=== PATIENT | female | born 1950 | race Caucasian/White ===

== ENCOUNTER 2018-11-25 05:55 | Emergency (ER) | payer OTHER, MEDICARE ==
--- NOTE | 2018-11-25 06:16 | EDM.PDOC ---
ED HPI GENERAL MEDICAL PROBLEM - General Chief Complaint: Cardiovascular Problem Stated Complaint: HIGH BLOOD PRESSURE Time Seen by Provider: 11/25/18 06:16 - History of Present Illness INITIAL COMMENTS - FREE TEXT/NARRATIVE: 68-year-old female presents emergency room with elevated blood pressure. The patient noticed her blood pressure in the 160s 170s around 4:30 at 5:00 it was his highest at 181. This was not associated with any chest pain chest pressure breathing difficulty or shortness of breath. No significant headaches or areas of numbness or weakness were appreciated. The patient was checking her blood pressure because she's noticed that her blood pressures been going up lately but often times during the day her pressure is much lower systolics in the 110s to 120s she has no history of urinary artery disease. She does not currently smoke she quit many years ago probably 45 or so years ago. - Related Data Allergies Allergy/AdvReac Type Severity Reaction Status Date / Time azithromycin [From Zithromax] Allergy Diarrhea Verified 11/25/18 06:13 Penicillins Allergy Hives Verified 11/25/18 06:13 Sulfa (Sulfonamide Allergy Diarrhea Verified 11/25/18 06:13 Antibiotics) ED ROS GENERAL - Review of Systems Review Of Systems: See Below Constitutional: Reports: No Symptoms HEENT: Reports: No Symptoms Respiratory: Reports: No Symptoms Cardiovascular: Reports: No Symptoms GI/Abdominal: Reports: No Symptoms Neurological: Reports: No Symptoms ED EXAM, GENERAL - Physical Exam Exam: See Below Exam Limited By: No Limitations General Appearance: Alert, No Apparent Distress Head: Atraumatic, Normocephalic Neck: Normal Inspection, Supple, Non-Tender, Full Range of Motion Respiratory/Chest: No Respiratory Distress, Lungs Clear, Normal Breath Sounds Cardiovascular: Regular Rate, Rhythm, No Murmur, Other (She has large legs is chronic deal most likely due to body habitus. Perhaps minimal edema.) GI/Abdominal: Other (She is quite obese) Neurological: Alert, Oriented, Normal Cognition EKG INTERPRETATION EKG Date: 11/25/18 Rhythm: NSR Rate (Beats/Min): 81 [place]: Other (Borderline leftward) P-Wave: Present QRS: Other (Borderline interventricular conduction delay) ST-T: Other (Minimal nonspecific nondiagnostic changes) QT: Normal Comparison: NA - No Prior EKG EKG Interpretation Comments: Abnormal Course - Vital Signs Last Recorded V/S: Last Vital Signs Temp 36.3 C 11/25/18 06:05 Pulse 77 11/25/18 06:05 Resp 18 11/25/18 06:05 BP 148/79 H 11/25/18 06:05 Pulse Ox 100 11/25/18 06:05 - Orders/Labs/Meds Orders: Active Orders 24 hr Category Date Time Status EKG Documentation Completion [RC] ASDIRECTED Care 11/25/18 06:33 Active EKG 12 Lead [EK] Stat Ther 11/25/18 06:32 Ordered Labs: Laboratory Tests 11/25/18 Range/Units 06:40 Sodium 141 (136-145) mEq/L Potassium 3.9 (3.5-5.1) mEq/L Chloride 107 (98-107) mEq/L Carbon Dioxide 25 (21-32) mEq/L Anion Gap 12.9 (5-15) BUN 13 (7-18) mg/dL Creatinine 0.8 (0.55-1.02) mg/dL Est Cr Clr Drug Dosing 64.76 mL/min Estimated GFR (MDRD) > 60 (>60) mL/min BUN/Creatinine Ratio 16.3 (14-18) Glucose 96 (80-115) mg/dL Calcium 9.1 (8.5-10.1) mg/dL - Re-Assessments/Exams Free Text/Narrative Re-Assessment/Exam: 11/25/18 07:19 Basic metabolic panel is normal. Strongly encouraged patient to follow-up in the clinic Departure - Departure Time of Disposition: 07:21 Disposition: Home, Self-Care 01 Clinical Impression: Hypertension Referrals: PCP,None [Primary Care Provider] - Forms: ED Department Discharge Additional Instructions: Return to the emergency room with any questions or problems. Follow-up at the Hospital clinic with one of the physicians for recheck your blood pressure and to establish. [phone] - My Orders Last 24 Hours: My Active Orders 11/25/18 06:32 EKG 12 Lead [EK] Stat 11/25/18 06:33 EKG Documentation Completion [RC] ASDIRECTED - Assessment/Plan Last 24 Hours: My Active Orders 11/25/18 06:32 EKG 12 Lead [EK] Stat 11/25/18 06:33 EKG Documentation Completion [RC] ASDIRECTED
== END 2018-11-25 07:35 | disposition home or self-care (01) ==
LOC: JD.ED 05:55
DX: I10 Essential (primary) hypertension (principal); Z88.1 Allergy status to other antibiotic agents; Z88.0 Allergy status to penicillin; Z88.2 Allergy status to sulfonamides
CPT/HCPCS: 36415; 80048; 93005; 99283-25

== ENCOUNTER 2018-12-04 01:59 | Emergency (ER) | payer OTHER, MEDICARE ==
[2018-12-04] MEDS ORDERED: Ondansetron 4 MG/2 ML SDV IVPUSH ONE (02:56)
[2018-12-04] MEDS ORDERED: Sodium Chloride 0.9% 1,000 ML IV ONE (02:56)
--- NOTE | 2018-12-04 02:58 | EDM.PDOC ---
ED HPI GENERAL MEDICAL PROBLEM - General Chief Complaint: Cardiovascular Problem Stated Complaint: VOMITING/A-FIB Time Seen by Provider: 12/04/18 02:37 Source of Information: Reports: Patient, Family () History Limitations: Reports: No Limitations - History of Present Illness INITIAL COMMENTS - FREE TEXT/NARRATIVE: Mrs. Reynoso is a very pleasant 68-year-old woman with a past medical history significant for paroxysmal atrial fibrillation "whenever I get sick" since 2011 , and hypothyroidism following I-131 ablation for hyperthyroidism, who states that she woke around 23:15 with nausea and vomiting. She had repeated episodes, then, around 00:30, she felt herself go into atrial fibrillation. She is able to tell when she is in atrial fibrillation because of rapid palpitations. The patient does not recall eating any bad taste or spoiled food over the past few days. No similarly ill close contacts. No recent antibiotics. No recent travel. The patient did not take any [id number] or home remedies prior to coming to the ED. The patient states she has a remote history of SVT, status post cardiac ablation. The patient's PCP is YAMILE Hayes. Abdominal Pain Score (Numeric/FACES): 5 - Related Data Allergies Allergy/AdvReac Type Severity Reaction Status Date / Time azithromycin [From Zithromax] Allergy Diarrhea Verified 12/04/18 02:16 Penicillins Allergy Hives Verified 12/04/18 02:16 Sulfa (Sulfonamide Allergy Diarrhea Verified 12/04/18 02:16 Antibiotics) Home Meds: Home Meds Ondansetron [Zofran ODT] 1 tab PO Q8H PRN #10 tab.dis 12/04/18 [Rx] Past Medical History Cardiovascular History: Reports: Afib (paroxysmal), Arrhythmia (SVT, s/p cardiac ablation) Gastrointestinal History: Reports: GERD, Hiatal Hernia Genitourinary History: Reports: Urinary Incontinence (stress incontinence) Musculoskeletal History: Reports: Arthritis Endocrine/Metabolic History: Reports: Hypothyroidism (following I-131 ablation for hyperthyroidism), Obesity/BMI 30+ - Past Surgical History HEENT Surgical History: Reports: Tonsillectomy Cardiovascular Surgical History: Reports: Cardiac Ablation (for SVT) GI Surgical History: Reports: Bariatric Procedure (gastric bypass 2006) Female Surgical History: Reports: Hysterectomy (complete), Tubal Ligation Social & Family History - Tobacco Use Smoking Status *Q: Former Smoker Years of Tobacco use: 8 Packs/Tins Daily: 1 Month/Year Tobacco Last Used: Quit 1975 - Caffeine Use Caffeine Use: Reports: Coffee - Alcohol Use Alcohol Use History: Yes Alcohol Use Frequency: Socially - Recreational Drug Use Recreational Drug Use: No - Living Situation & Occupation Living situation: Reports: , with Spouse Occupation: Employed ([employer]) ED ROS GENERAL - Review of Systems Review Of Systems: ROS reveals no pertinent complaints other than HPI. Neurological: Reports: Headache ED EXAM, GENERAL - Physical Exam Exam: See Below Exam Limited By: No Limitations General Appearance: Alert, WD/WN, No Apparent Distress Eye Exam: Bilateral Eye: EOMI, Normal Inspection Ears: Normal External Exam, Hearing Grossly Normal Nose: Normal Inspection Throat/Mouth: Normal Inspection, Normal Lips, Normal Voice, No Airway Compromise Head: Atraumatic, Normocephalic Neck: Normal Inspection, Full Range of Motion Respiratory/Chest: No Respiratory Distress, Lungs Clear, Normal Breath Sounds, No Accessory Muscle Use Cardiovascular: Normal Peripheral Pulses, No Gallop, No JVD, No Murmur, No Rub, Tachycardia, Irregularly Irregular Peripheral Pulses: 4+: Radial (L), Radial (R) GI/Abdominal: Normal Bowel Sounds, Soft, Non-Tender, No Organomegaly, No Distention, No Abnormal Bruit, No Mass (Female) Exam: Deferred Rectal (Female) Exam: Deferred Back Exam: Normal Inspection, Full Range of Motion, NT Extremities: Normal Inspection, Normal Range of Motion, Normal Capillary Refill Neurological: Alert, Oriented, Normal Cognition, No Motor/Sensory Deficits Psychiatric: Normal Affect Skin Exam: Warm, Dry, Intact, Normal Color, No Rash EKG INTERPRETATION EKG Date: 12/04/18 Time: 02:20 Rhythm: A-Fib Rate (Beats/Min): 137 [place]: Normal P-Wave: Absent QRS: LBBB (incomplete) ST-T: Normal QT: Normal Comparison: No Change (11/25/2018) Course - Vital Signs Last Recorded V/S: Last Vital Signs Temp 36.2 C 12/04/18 02:10 Pulse 109 H 12/04/18 04:46 Resp 16 12/04/18 04:46 BP 125/82 12/04/18 04:46 Pulse Ox 98 12/04/18 04:46 - Orders/Labs/Meds Orders: Active Orders 24 hr Category Date Time Status EKG 12 Lead [EKG Documentation Completion] [RC] STAT Care 12/04/18 04:54 Active EKG Documentation Completion [RC] ROUTINE Care 12/04/18 02:04 Active Chest 2V [CR] Stat Exams 12/04/18 02:55 Taken Labs: Laboratory Tests 12/04/18 12/04/18 12/04/18 Range/Units 03:10 03:10 03:10 WBC 13.87 H (3.98-10.04) K/mm3 RBC 4.69 (3.98-5.22) M/mm3 Hgb 14.8 (11.2-15.7) gm/L Hct 44.1 (34.1-44.9) % MCV 94.0 (79.4-94.8) fl MCH 31.6 (25.6-32.2) pg MCHC 33.6 (32.2-35.5) g/dl RDW Std Deviation 47.8 H (36.4-46.3) fL Plt Count 234 (182-369) K/mm3 MPV 10.2 (9.4-12.3) fl Neutrophils % (Manual) 69 H (40-60) % Band Neutrophils % 23 H (0-10) % Lymphocytes % (Manual) 5 L (20-40) % Atypical Lymphs % 0 % Monocytes % (Manual) 2 (2-10) % Eosinophils % (Manual) 1 (0.7-5.8) % Basophils % (Manual) 0 L (0.1-1.2) Toxic Granulation 1+ slight Platelet Estimate Adequate Plt Morphology Comment Normal RBC Morph Comment Normal D-Dimer, Quantitative 2.56 H (0.19-0.50) mg/L Sodium 140 (136-145) mEq/L Potassium 4.8 (3.5-5.1) mEq/L Chloride 106 (98-107) mEq/L Carbon Dioxide 24 (21-32) mEq/L Anion Gap 14.8 (5-15) BUN 23 H (7-18) mg/dL Creatinine 1.1 H (0.55-1.02) mg/dL Est Cr Clr Drug Dosing 43.44 mL/min Estimated GFR (MDRD) 50 (>60) mL/min BUN/Creatinine Ratio 20.9 H (14-18) Glucose 114 (80-115) mg/dL Calcium 9.3 (8.5-10.1) mg/dL Magnesium 1.9 (1.8-2.4) mg/dl Total Bilirubin 0.5 (0.2-1.0) mg/dL AST 25 (15-37) U/L ALT 24 (14-59) U/L Alkaline Phosphatase 89 (46-116) U/L Troponin I < 0.017 (0.00-0.056) ng/mL Total Protein 7.2 (6.4-8.2) g/dl Albumin 3.5 (3.4-5.0) g/dl Globulin 3.7 gm/dL Albumin/Globulin Ratio 1.0 (1-2) TSH 3rd Generation 7.496 H (0.358-3.74) uIU/mL Meds: Medications Discontinued Medications Generic Name Dose Route Start Last Admin Trade Name Freq PRN Reason Stop Dose Admin Sodium Chloride 1,000 mls @ 999 mls/hr 12/04/18 02:56 12/04/18 03:04 Normal Saline IV 12/04/18 03:56 999 mls/hr ONETIME ONE Administration Sodium Chloride 1,000 mls @ 150 mls/hr 12/04/18 04:45 Normal Saline IV ASDIRECTED [place] Sodium Chloride 100 mls @ 4 mls/sec 12/04/18 04:59 Normal Saline IV 12/04/18 05:00 ONETIME ONE Iopamidol 100 ml 12/04/18 04:59 Isovue-370 (76%) IVPUSH 12/04/18 05:00 ONETIME ONE Ondansetron HCl 4 mg 12/04/18 02:56 12/04/18 03:04 Zofran IVPUSH 12/04/18 02:57 4 mg ONETIME ONE Administration - Re-Assessments/Exams Free Text/Narrative Re-Assessment/Exam: 12/04/18 02:57 Since the patient tells me that her A-fib only occurs if she is still, I was hoping that we can avoid giving her a chronotrope, and just treat her current nausea and vomiting with IV fluid and Zofran. If, however, she does not convert to a normal sinus rhythm fairly soon, I will probably need to start her on diltiazem, which will then require admission to the hospital. The patient is hoping to avoid that. 12/04/18 04:45 2-view chest radiograph appears to be grossly normal. The cardiac silhouette is within normal limits. No pulmonary vascular congestion. No pleural effusions. No focal infiltrate. No pneumothorax. Formal read per the Radiologist pending. The patient's CBC is remarkable for a WBC count elevated at 13.87 with 23% bandemia. The remainder of the CBC is unremarkable. Her CMP is remarkable for BUN/Cr mildly elevated at 23/1.1, with the remainder of the CMP being unremarkable. Her magnesium level is within normal limits at 1.9. Her troponin is undetectably low. Her D-dimer is significantly elevated at 2.56. Her TSH is elevated at 7.496. The patient's elevated D-dimer cannot be explained by her mild renal insufficiency, and is concerning for a pulmonary embolus, which could be the cause of her paroxysmal atrial fibrillation. I have therefore ordered a CT angiogram of her chest. She already received 1 L of IV fluid, however, I have ordered additional IV fluid. The cause of the patient's significant left shift with a relatively mild elevated WBC count is unclear, and I suspect a lab error, since the patient has no signs or symptoms of a bacterial infection. I am recommending repeating the CBC at some point in the near future. The patient's elevated TSH suggests she is hypothyroid, but will need to be repeated when she is not ill. Notified by Radha MOE that the patient spontaneously converted to a normal sinus rhythm. 12/04/18 04:58 The above test results and my recommendation for a CT angiogram of the chest were discussed with the patient and her . The patient is agreeable. Repeat ECG dated 12/04/2018 at 04:51 demonstrates a sinus tachycardia at 102 bpm. There are no acute ST or T-wave changes. No Q waves are seen. There is an incomplete left bundle branch block. No LAD or LVH. QTc is within normal limits. 12/04/18 05:52 CT angiogram of the chest is read by Dr. Walters as: 1. Less than optimal opacification of the pulmonary arteries. No pulmonary embolism is seen within the main or segmental branches. Smaller subsegmental pulmonary emboli could be missed. 2. Hiatal hernia and other incidental abdominal findings. 3. Multiple small nodules within both sides of the chest. These findings are most likely due to noncalcified granulomas. Follow-up noncontrast chest CT could be considered in 6 months to confirm stability. This follow-up will occur in May,. 4. Other findings as described above believed to be incidental. Regarding the patient's CTA report, I am not so concerned about small subsegmental pulmonary emboli, as they would not cause significant hemodynamic instability, such as atrial fibrillation. I would be more concerned with a larger pulmonary embolus, which this CTA did rule out. 12/04/18 06:00 Test results discussed with the patient and her . She states that she feels much better following the IV Zofran. I will discharge the patient home with a prescription for Zofran and the recommendation that she contact her PCPs office this morning, to get a repeat CBC with manual differential. The TSH should be repeated sometime next week. Departure - Departure Time of Disposition: 06:01 Disposition: Home, Self-Care 01 Condition: Good Clinical Impression: Nausea & vomiting, Paroxysmal atrial fibrillation with rapid ventricular response, Elevated TSH, Elevated WBC count - Discharge Information *PRESCRIPTION DRUG MONITORING PROGRAM REVIEWED*: Not Applicable *COPY OF PRESCRIPTION DRUG MONITORING REPORT IN PATIENT [facility]: Not Applicable Prescriptions: Ondansetron [Zofran ODT] 1 tab PO Q8H PRN #10 tab.dis PRN Reason: Nausea/Vomiting Instructions: Nausea and Vomiting, Adult, Atrial Fibrillation, [id number] Referrals: Miracle Nazario PA-C [Primary Care Provider] - Forms: ED Department Discharge Additional Instructions: You were seen in the emergency room for nausea and vomiting with the subsequent development of atrial fibrillation. Workup in the ER included blood work, a chest x-ray, a CT angiogram of your chest, and an ECG. Your WBC count was found to be modestly elevated at 13.87, but with 23% bandemia , which is quite high. It suggests that you have a bacterial infection, but no infection was found. It is likely due to a lab error, but a CBC should be repeated with a manual differential, to make sure that it normalizes. Your TSH was found to be elevated at 7.496. This, too, should be repeated. Your ECG confirmed that you were in atrial fibrillation, however, it converted to a normal sinus rhythm after you were given some IV fluid and antinausea medicine. A prescription for the anti-nausea medicine Zofran has been sent to the [facility]. Dissolve one tablet of Zofran on your tongue up to every 8 hours, as needed for nausea/vomiting. Stay adequately hydrated. Gatorade or Powerade are best. Chicken noodle soup with saltine crackers is also an excellent choice. Follow-up with your PCP, YAMILE Hayes, this morning, to arrange to have a repeat CBC with manual differential drawn this morning, and a repeat TSH drawn next week. If any other problems, please do not hesitate to return to the ER. - My Orders Last 24 Hours: My Active Orders 12/04/18 02:04 EKG Documentation Completion [RC] ROUTINE 12/04/18 02:55 Chest 2V [CR] Stat 12/04/18 04:54 EKG 12 Lead [EKG Documentation Completion] [RC] STAT - Assessment/Plan Last 24 Hours: My Active Orders 12/04/18 02:04 EKG Documentation Completion [RC] ROUTINE 12/04/18 02:55 Chest 2V [CR] Stat 12/04/18 04:54 EKG 12 Lead [EKG Documentation Completion] [RC] STAT
[2018-12-04] MEDS ORDERED: Sodium Chloride 0.9% 1,000 ML IV SCH (04:45)
[2018-12-04] MEDS ORDERED: Iopamidol 755 Mg/ML 100 ML Bottle IVPUSH ONE (04:59)
[2018-12-04] MEDS ORDERED: Sodium Chloride 0.9% 100 ML IV ONE (04:59)
--- NOTE | 2018-12-04 05:43 | CT ---
CT chest Technique: Multiple axial sections through the chest are obtained. Intravenous contrast was not utilized. Study was performed as a pulmonary angiogram protocol. Comparison: No prior chest CT, previous chest x-ray performed earlier on the same day (3:29 AM). Findings: 4 small low density findings are noted within the liver. These are too small to characterize by Hounsfield unit measurements but most likely represent small cysts. Largest finding measures 7 mm. Parapelvic cyst is noted within the left kidney. 2 cortical cysts are partially visualized within the right kidney. Previous bowel surgery is partially seen. Moderately large hiatal hernia is noted. Surgical material is seen around the hiatal hernia. No pericardial thickening is seen. Aorta shows no aneurysm. Mediastinum shows no adenopathy or mass. Pulmonary arteries are not optimally opacified. No filling defects are seen within the main or segmental branches to indicate pulmonary emboli. Smaller subsegmental pulmonary emboli could be missed. Multiple small pulmonary nodules are identified. These do not show any calcifications and largest nodule measures around 7 mm. Slight parenchymal densities are seen within the lingula and right middle lobe believed to represent areas of scarring. Lungs otherwise are clear with no acute parenchymal change. Bone window settings were reviewed which show no acute osseous abnormality. Impression: 1. Less than optimal opacification of the pulmonary arteries. No pulmonary embolism is seen within the main or segmental branches. Smaller subsegmental pulmonary emboli could be missed. 2. Hiatal hernia and other incidental abdominal findings. 3. Multiple small nodules within both sides of the chest. These findings are most likely due to noncalcified granulomas. Follow-up noncontrast chest CT could be considered in 6 months to confirm stability. This follow-up would occur in May,. 4. Other findings as described above believed to be incidental. Diagnostic code #9
--- NOTE | 2018-12-04 09:10 | CR ---
Chest: Two views of the chest were obtained. Comparison: No prior chest imaging. Heart size is normal. Tortuous thoracic aorta is seen. Small nodule is noted within the right upper chest. Slight parenchymal densities are noted off the left cardiac apex which are most likely due to scarring. No acute parenchymal change is otherwise seen. Bony structures appear within normal limits for the patient's age. Impression: 1. Small nodule within the right upper chest. Slight scarring off the left cardiac apex. 2. Nothing acute is otherwise seen on two-view chest x-ray. Diagnostic code #2
== END 2018-12-04 06:18 | disposition home or self-care (01) ==
LOC: JD.ED 01:59
DX: I48.91 Unspecified atrial fibrillation (principal); R11.2 Nausea with vomiting, unspecified; D72.829 Elevated white blood cell count, unspecified; R94.6 Abnormal results of thyroid function studies; E66.9 Obesity, unspecified; Z68.34 Body mass index [BMI] 34.0-34.9, adult; Z87.891 Personal history of nicotine dependence; Z88.0 Allergy status to penicillin; Z88.1 Allergy status to other antibiotic agents; Z88.2 Allergy status to sulfonamides
CPT/HCPCS: 36415; 71046; 71275; 80053; 83735; 84443; 84484; 85007; 85027; 85379; 93005; 96361; 96374; 99285; J2405; J7040; 93010; 99284

== ENCOUNTER 2022-06-03 08:48 | Day surgery (SDC) | payer MEDICARE, BC ==
[~2022-06-03 08:48] MED LIST: EPINEPHrine 1 MG/ML SDV ONE; Lactated Ringers 1,000 ML IV SCH; Lidocaine 1%/Sod Bicarbonate in NS 8.4% 1 ML Syringe IDERM PRN; Morphine 8 MG, EPINEPHrine 0.3 MG, Cefuroxime 750 MG, Ketorolac 30 MG, Sodium Chloride ... PRN; Ropivacaine 0.5% 5 MG/ML 30 ML SDV ONE; Sodium Chloride 0.9% 10 ML Syringe FLUSH PRN; Sodium Chloride 0.9% 10 ML Syringe FLUSH SCH
[2022-06-03] MEDS ORDERED: Bupivacaine 0.25% 10 ML SDV ONE (09:37)
[2022-06-03] MEDS ORDERED: Vancomycin 1 GM SDV ONE (09:37)
[2022-06-03] MEDS ORDERED: Tranexamic Acid 1,000 MG/10 ML Vial ONE (09:37)
[2022-06-03] MEDS ORDERED: Triamcinolone Acetonide 40 MG/ML 1 ML SDV ONE (09:37)
[2022-06-03] MEDS ORDERED: fentaNYL 100 MCG/2 ML SDV ONE ×2 (10:40→11:10)
[2022-06-03] MEDS ORDERED: Midazolam 1 MG/ML 2 ML SDV ONE ×3 (10:40→12:36)
[2022-06-03] MEDS ORDERED: Propofol 200 MG/20 ML SDV ONE ×3 (10:40→12:37)
[2022-06-03] MEDS ORDERED: ceFAZolin 2 GM Vial ONE ×2 (10:41→11:10)
[2022-06-03] MEDS ORDERED: Lidocaine 1% 2 ML ONE (11:10)
[2022-06-03] MEDS ORDERED: Phenylephrine HCl In 0.9% NaCl 1 MG/10 ML Vial ONE (12:30)
[2022-06-03] MEDS ORDERED: Ondansetron 4 MG/2 ML SDV IVPUSH PRN (14:20)
[2022-06-03] MEDS ORDERED: HYDROmorphone 0.5 MG/0.5 ML Syringe IVPUSH PRN (14:20)
[2022-06-03] MEDS ORDERED: fentaNYL 100 MCG/2 ML SDV IVPUSH PRN (14:20)
[2022-06-03] MEDS ORDERED: Ketorolac 30 MG/ML SDV IM ONE (14:21)
[2022-06-03] MEDS ORDERED: EPINEPHrine 1 MG/ML SDV ONE (14:32)
[2022-06-03] MEDS ORDERED: Ropivacaine 0.5% 5 MG/ML 30 ML SDV ONE (14:32)
[2022-06-03] MEDS ORDERED: Acetaminophen/HYDROcodone 325-5 MG Tab PO ONE (14:38)
== END 2022-06-03 16:45 | disposition home or self-care (01) ==
LOC: JD.SDS 08:48
PROVIDERS: ATTEND Orthopaedic Surgery
DX: M17.0 Bilateral primary osteoarthritis of knee (principal); G89.29 Other chronic pain; I48.91 Unspecified atrial fibrillation; F41.9 Anxiety disorder, unspecified; I10 Essential (primary) hypertension; E03.9 Hypothyroidism, unspecified; G47.00 Insomnia, unspecified; M81.0 Age-related osteoporosis without current pathological fracture; Z79.890 Hormone replacement therapy; Z87.891 Personal history of nicotine dependence; Z79.899 Other long term (current) drug therapy; Z88.1 Allergy status to other antibiotic agents; Z88.5 Allergy status to narcotic agent; Z88.0 Allergy status to penicillin; Z91.048 Other nonmedicinal substance allergy status
CPT/HCPCS: 0055T; 20610; 27447; 64447; 73560; 97110; 97116; 97161; A9270; C1713; C1776; J0171; J0690; J0697; J1170; J1885; J2250; J2270; J2704; J2795; J3010; J3301; J3370; J3490; J7120; 01402; 64450

== ENCOUNTER 2023-01-06 13:16 | Emergency (ER) | payer OTHER, MEDICARE ==
[2023-01-06 14:24] LABS: BASOPHILS ABSOLUTE AUTO 0.1 K/mm3 (0.0-0.2); BASOPHILS PERCENT AUTO 0.6 % (0.0-1.0); EOSINOPHILS ABSOLUTE AUTO 0.2 K/mm3 (0.0-0.4); EOSINOPHILS PERCENT AUTO 2.2 % (0.0-6.0); HEMATOCRIT 40.4 % (37.0-47.0); HEMOGLOBIN 13.6 gm/dl (12.0-16.0); IMMATURE GRAN ABSOLUTE AUTO 0.02 K/mm3 (0.00-0.05); IMMATURE GRAN PERCENT AUTO 0.2 % (0.0-0.4); LYMPHOCYTES ABSOLUTE AUTO 1.9 K/mm3 (1.0-4.8); LYMPHOCYTES PERCENT AUTO 23.7 % (24.0-44.0); MEAN CORPUSCULAR HEMOGLOBIN 32.4 pg (28.0-32.0); MEAN CORPUSCULAR HGB CONC 33.7 g/dl (32.0-36.0); MEAN CORPUSCULAR VOLUME 96.2 fl (83.0-99.0); MEAN PLATELET VOLUME 10.3 fl (9.4-12.3); MONOCYTES ABSOLUTE AUTO 0.7 K/mm3 (0.0-0.8); MONOCYTES PERCENT AUTO 8.2 % (0.0-8.0); NEUTROPHILS ABSOLUTE AUTO 5.3 K/mm3 (1.8-7.7); NEUTROPHILS PERCENT AUTO 65.1 % (41.0-71.0); PLATELET COUNT,PLT 258 K/mm3 (150-400); WHITE BLOOD CELL COUNT,WBC 8.15 K/mm3 (3.9-11.3)
[2023-01-06 14:39] LABS: A/G RATIO 0.9 (1-2); ALBUMIN 3.4 g/dl (3.4-5.0); ANION GAP 14.3 (5-15); BILIRUBIN TOTAL 0.3 mg/dL (0.2-1.0); CALCIUM 9.4 mg/dL (8.5-10.1); POTASSIUM,K 4.3 mEq/L (3.5-5.1); PROTEIN TOTAL,TP 7.1 g/dl (6.4-8.2)
== END 2023-01-06 16:47 | disposition home or self-care (01) ==
LOC: JD.ED 13:16
DX: R07.9 Chest pain, unspecified (principal); K44.9 Diaphragmatic hernia without obstruction or gangrene; E03.9 Hypothyroidism, unspecified; E66.9 Obesity, unspecified; Z68.34 Body mass index [BMI] 34.0-34.9, adult; Z79.899 Other long term (current) drug therapy; Z88.0 Allergy status to penicillin; Z88.1 Allergy status to other antibiotic agents; Z88.2 Allergy status to sulfonamides; Z88.5 Allergy status to narcotic agent; Z91.040 Latex allergy status; Z91.048 Other nonmedicinal substance allergy status
CPT/HCPCS: 36415; 71046; 71046-26; 80053; 84484; 85025; 93005; 93010; 99284; 99285

== ENCOUNTER 2023-06-16 22:29 | Emergency (ER) | payer OTHER, MEDICARE ==
[2023-06-16 23:19] LABS: BASOPHILS ABSOLUTE AUTO 0.1 K/mm3 (0.0-0.2); BASOPHILS PERCENT AUTO 0.7 % (0.0-1.0); EOSINOPHILS ABSOLUTE AUTO 0.2 K/mm3 (0.0-0.4); EOSINOPHILS PERCENT AUTO 2.1 % (0.0-6.0); HEMOGLOBIN 13.6 gm/dl (12.0-16.0); IMMATURE GRAN ABSOLUTE AUTO 0.02 K/mm3 (0.00-0.05); IMMATURE GRAN PERCENT AUTO 0.3 % (0.0-0.4); LYMPHOCYTES ABSOLUTE AUTO 2.5 K/mm3 (1.0-4.8); LYMPHOCYTES PERCENT AUTO 34.7 % (24.0-44.0); MEAN CORPUSCULAR HEMOGLOBIN 32.2 pg (28.0-32.0); MEAN CORPUSCULAR VOLUME 94.6 fl (83.0-99.0); MEAN PLATELET VOLUME 9.9 fl (9.4-12.3); MONOCYTES ABSOLUTE AUTO 0.6 K/mm3 (0.0-0.8); NEUTROPHILS ABSOLUTE AUTO 3.8 K/mm3 (1.8-7.7); NEUTROPHILS PERCENT AUTO 53.2 % (41.0-71.0); PLATELET COUNT,PLT 227 K/mm3 (150-400); RED BLOOD CELL COUNT 4.23 M/mm3 (4.10-5.30); WHITE BLOOD CELL COUNT,WBC 7.14 K/mm3 (3.9-11.3)
[2023-06-16] MEDS: Acetaminophen 325 MG Tab PO ONE (23:30)
[2023-06-16] MEDS: Sodium Chloride 0.9% 500 ML IV ONE (23:31)
[2023-06-16 23:44] LABS: ALBUMIN 3.4 g/dl (3.4-5.0); ANION GAP 14.7 (5-15); BILIRUBIN TOTAL 0.3 mg/dL (0.2-1.0); CALCIUM 9.1 mg/dL (8.5-10.1); EST CRCL DRUG DOSING (CG) 50.9 mL/min; POTASSIUM,K 3.7 mEq/L (3.5-5.1); PROTEIN TOTAL,TP 6.8 g/dl (6.4-8.2)
[2023-06-16 23:53] LABS: APPEARANCE,URINE CLEAR (Clear); BILIRUBIN,URINE NEGATIVE (Negative); COLOR,URINE YELLOW (Yellow); GLUCOSE,URINE NEGATIVE (Negative); KETONES,URINE NEGATIVE (Negative); LEUKOCYTE ESTERASE,URINE NEGATIVE (Negative); NITRITE,URINE NEGATIVE (Negative); OCCULT BLOOD,URINE NEGATIVE (Negative); PROTEIN,URINE NEGATIVE (Negative); UROBILINOGEN,URINE 0.2 (0.2-1.0)
== END 2023-06-17 00:58 | disposition home or self-care (01) ==
LOC: JD.ED 22:29
DX: I48.91 Unspecified atrial fibrillation (principal); I10 Essential (primary) hypertension; E66.9 Obesity, unspecified; E03.9 Hypothyroidism, unspecified; Z88.0 Allergy status to penicillin; Z88.1 Allergy status to other antibiotic agents; Z88.2 Allergy status to sulfonamides; Z88.8 Allergy status to other drugs, medicaments and biological substances; Z91.040 Latex allergy status; Z91.048 Other nonmedicinal substance allergy status; Z79.899 Other long term (current) drug therapy; Z90.710 Acquired absence of both cervix and uterus; Z68.34 Body mass index [BMI] 34.0-34.9, adult
CPT/HCPCS: 36415; 80053; 81003; 83880; 84484; 85025; 93005; 96360; 99285; A9270; J7030; 93010; 99284

== ENCOUNTER 2023-07-17 02:17 | Emergency (ER) | payer OTHER, MEDICARE ==
[2023-07-17] MEDS: Metoprolol Tartrate 5 MG/5 ML SDV IVPUSH ONE (02:39)
[2023-07-17 02:43] LABS: BASOPHILS ABSOLUTE AUTO 0.1 K/mm3 (0.0-0.2); BASOPHILS PERCENT AUTO 0.6 % (0.0-1.0); EOSINOPHILS ABSOLUTE AUTO 0.1 K/mm3 (0.0-0.4); EOSINOPHILS PERCENT AUTO 1.3 % (0.0-6.0); HEMATOCRIT 43.4 % (37.0-47.0); HEMOGLOBIN 14.7 gm/dl (12.0-16.0); IMMATURE GRAN ABSOLUTE AUTO 0.02 K/mm3 (0.00-0.05); IMMATURE GRAN PERCENT AUTO 0.2 % (0.0-0.4); LYMPHOCYTES PERCENT AUTO 22.6 % (24.0-44.0); MEAN CORPUSCULAR HEMOGLOBIN 31.5 pg (28.0-32.0); MEAN CORPUSCULAR HGB CONC 33.9 g/dl (32.0-36.0); MEAN CORPUSCULAR VOLUME 92.9 fl (83.0-99.0); MEAN PLATELET VOLUME 9.7 fl (9.4-12.3); MONOCYTES ABSOLUTE AUTO 0.7 K/mm3 (0.0-0.8); MONOCYTES PERCENT AUTO 8.2 % (0.0-8.0); NEUTROPHILS ABSOLUTE AUTO 5.8 K/mm3 (1.8-7.7); NEUTROPHILS PERCENT AUTO 67.1 % (41.0-71.0); PLATELET COUNT,PLT 228 K/mm3 (150-400); RED BLOOD CELL COUNT 4.67 M/mm3 (4.10-5.30); WHITE BLOOD CELL COUNT,WBC 8.64 K/mm3 (3.9-11.3)
[2023-07-17 03:00] LABS: INR 0.95; PROTHROMBIN TIME 10.2 SECONDS (9.7-12.0)
[2023-07-17 03:01] LABS: D-DIMER QUANTITATIVE 0.34 mg/L (0.19-0.50)
[2023-07-17 03:12] LABS: ANION GAP 11.6 (5-15); CALCIUM 9.5 mg/dL (8.5-10.1); MAGNESIUM 1.9 mg/dL (1.8-2.4); POTASSIUM,K 3.6 mEq/L (3.5-5.1)
== END 2023-07-17 03:45 | disposition home or self-care (01) ==
LOC: JD.ED 02:17
DX: I48.0 Paroxysmal atrial fibrillation (principal); I10 Essential (primary) hypertension; I48.91 Unspecified atrial fibrillation; K21.9 Gastro-esophageal reflux disease without esophagitis; E03.9 Hypothyroidism, unspecified; Z91.048 Other nonmedicinal substance allergy status; Z88.1 Allergy status to other antibiotic agents; Z88.5 Allergy status to narcotic agent; Z91.040 Latex allergy status; Z88.2 Allergy status to sulfonamides; Z79.899 Other long term (current) drug therapy; Z90.710 Acquired absence of both cervix and uterus
CPT/HCPCS: 36415; 71045; 80048; 83735; 83880; 84484; 85025; 85379; 85610; 93005; 96374; 99285; J3490; 99284

== ENCOUNTER 2023-07-19 02:49 | Emergency (ER) | payer OTHER, MEDICARE ==
[2023-07-19] MEDS: Metoprolol Tartrate 25 MG Tab PO ONE (03:37)
[2023-07-19 03:38] LABS: BASOPHILS PERCENT AUTO 0.5 % (0.0-1.0); EOSINOPHILS ABSOLUTE AUTO 0.1 K/mm3 (0.0-0.4); EOSINOPHILS PERCENT AUTO 0.7 % (0.0-6.0); HEMATOCRIT 41.9 % (37.0-47.0); HEMOGLOBIN 14.3 gm/dl (12.0-16.0); IMMATURE GRAN ABSOLUTE AUTO 0.02 K/mm3 (0.00-0.05); IMMATURE GRAN PERCENT AUTO 0.3 % (0.0-0.4); LYMPHOCYTES ABSOLUTE AUTO 1.8 K/mm3 (1.0-4.8); LYMPHOCYTES PERCENT AUTO 24.2 % (24.0-44.0); MEAN CORPUSCULAR HEMOGLOBIN 31.5 pg (28.0-32.0); MEAN CORPUSCULAR HGB CONC 34.1 g/dl (32.0-36.0); MEAN CORPUSCULAR VOLUME 92.3 fl (83.0-99.0); MEAN PLATELET VOLUME 9.6 fl (9.4-12.3); MONOCYTES ABSOLUTE AUTO 0.6 K/mm3 (0.0-0.8); MONOCYTES PERCENT AUTO 8.2 % (0.0-8.0); NEUTROPHILS ABSOLUTE AUTO 4.9 K/mm3 (1.8-7.7); NEUTROPHILS PERCENT AUTO 66.1 % (41.0-71.0); PLATELET COUNT,PLT 231 K/mm3 (150-400); RED BLOOD CELL COUNT 4.54 M/mm3 (4.10-5.30); WHITE BLOOD CELL COUNT,WBC 7.44 K/mm3 (3.9-11.3)
[2023-07-19 04:09] LABS: A/G RATIO 1.1 (1-2); ALBUMIN 3.4 g/dl (3.4-5.0); ANION GAP 12.6 (5-15); BILIRUBIN TOTAL 0.7 mg/dL (0.2-1.0); CALCIUM 9.4 mg/dL (8.5-10.1); EST CRCL DRUG DOSING (CG) 45.2 mL/min; POTASSIUM,K 3.6 mEq/L (3.5-5.1); PROTEIN TOTAL,TP 6.5 g/dl (6.4-8.2); TSH 6.469 uIU/mL (0.358-3.74)
[2023-07-19 04:28] LABS: T4 FREE 1.25 ng/dL (0.76-1.46)
[2023-07-19] MEDS: Ondansetron 4 MG Tab.DIS PO ONE (04:42)
[2023-07-19] MEDS: Sucralfate 1 GM Tab PO ONE (04:42)
== END 2023-07-19 04:53 | disposition home or self-care (01) ==
LOC: JD.ED 02:49
DX: I48.0 Paroxysmal atrial fibrillation (principal); I10 Essential (primary) hypertension; E66.9 Obesity, unspecified; E03.9 Hypothyroidism, unspecified; Z88.0 Allergy status to penicillin; Z88.1 Allergy status to other antibiotic agents; Z88.2 Allergy status to sulfonamides; Z91.048 Other nonmedicinal substance allergy status; Z91.040 Latex allergy status; Z90.710 Acquired absence of both cervix and uterus; Z68.36 Body mass index [BMI] 36.0-36.9, adult; Z79.899 Other long term (current) drug therapy
CPT/HCPCS: 36415; 71045; 80053; 84439; 84443; 84484; 85025; 93005; 99285; A9270; 93010; 99284

== ENCOUNTER 2023-12-03 13:53 | Emergency (ER) | payer OTHER, MEDICARE ==
[2023-12-03 14:41] LABS: BASOPHILS PERCENT AUTO 0.4 % (0.0-1.0); EOSINOPHILS ABSOLUTE AUTO 0.1 K/mm3 (0.0-0.4); EOSINOPHILS PERCENT AUTO 0.9 % (0.0-6.0); HEMATOCRIT 44.3 % (37.0-47.0); HEMOGLOBIN 14.8 gm/dl (12.0-16.0); IMMATURE GRAN ABSOLUTE AUTO 0.02 K/mm3 (0.00-0.05); IMMATURE GRAN PERCENT AUTO 0.2 % (0.0-0.4); LYMPHOCYTES ABSOLUTE AUTO 2.3 K/mm3 (1.0-4.8); LYMPHOCYTES PERCENT AUTO 28.4 % (24.0-44.0); MEAN CORPUSCULAR HGB CONC 33.4 g/dl (32.0-36.0); MEAN PLATELET VOLUME 10.5 fl (9.4-12.3); MONOCYTES ABSOLUTE AUTO 0.7 K/mm3 (0.0-0.8); MONOCYTES PERCENT AUTO 8.1 % (0.0-8.0); PLATELET COUNT,PLT 254 K/mm3 (150-400); RED BLOOD CELL COUNT 4.63 M/mm3 (4.10-5.30); WHITE BLOOD CELL COUNT,WBC 8.12 K/mm3 (3.9-11.3)
[2023-12-03 14:42] LABS: MEAN CORPUSCULAR VOLUME 95.7 fl (83.0-99.0)
[2023-12-03] MEDS: HYDROmorphone 0.5 MG/0.5 ML Syringe IVPUSH ONE (14:45)
[2023-12-03] MEDS: Sodium Chloride 0.9% 1,000 ML IV SCH (14:45)
[2023-12-03] MEDS: Sodium Chloride 0.9% 10 ML Syringe FLUSH PRN (14:47)
[2023-12-03 15:20] LABS: A/G RATIO 1.1 (1-2); ALBUMIN 3.7 g/dl (3.4-5.0); ANION GAP 14.8 (5-15); BILIRUBIN TOTAL 0.5 mg/dL (0.2-1.0); BUN/CREATININE RATIO 12.7 (14-18); C-REACTIVE PROTEIN 0.05 mg/dL (<0.30); CALCIUM 9.6 mg/dL (8.5-10.1); CREATININE 1.1 mg/dL (0.55-1.02); EST CRCL DRUG DOSING (CG) 43.91 mL/min; MAGNESIUM 1.9 mg/dL (1.8-2.4); POTASSIUM,K 3.8 mEq/L (3.5-5.1); PROTEIN TOTAL,TP 7.2 g/dl (6.4-8.2); TSH 4.442 uIU/mL (0.358-3.74)
[2023-12-03 15:29] LABS: APPEARANCE,URINE CLEAR (Clear); BILIRUBIN,URINE NEGATIVE (Negative); COLOR,URINE YELLOW (Yellow); GLUCOSE,URINE NEGATIVE (Negative); KETONES,URINE NEGATIVE (Negative); LEUKOCYTE ESTERASE,URINE NEGATIVE (Negative); NITRITE,URINE NEGATIVE (Negative); OCCULT BLOOD,URINE TRACE-INTACT (Negative); PH,URINE 5.5 (5.0-8.0); PROTEIN,URINE NEGATIVE (Negative); UROBILINOGEN,URINE 0.2 (0.2-1.0)
[2023-12-03] MEDS: Sodium Chloride 0.9% 10 ML Syringe FLUSH ONE (15:34)
[2023-12-03] MEDS: Iopamidol 612 MG/ML 100 ML Bottle IVPUSH ONE (15:34)
[2023-12-03] MEDS: Iopamidol 612 MG/ML 30 ML SDV IVPUSH ONE (15:34)
[2023-12-03 15:47] LABS: BACTERIA,URINE FEW /hpf (FEW); RBC,URINE 0-5 /hpf (0-5); SQUAMOUS EPITHELIAL CELLS,UR 0-5 /hpf (0-5); WBC,URINE 0-5 /hpf (0-5)
[2023-12-03 15:48] LABS: MUCUS,URINE FEW /hpf (FEW)
== END 2023-12-03 17:36 | disposition home or self-care (01) ==
LOC: JD.ED 13:53
DX: R10.13 Epigastric pain (principal); R00.2 Palpitations; I10 Essential (primary) hypertension; K21.9 Gastro-esophageal reflux disease without esophagitis; E03.9 Hypothyroidism, unspecified; E66.9 Obesity, unspecified; I48.91 Unspecified atrial fibrillation; Z79.899 Other long term (current) drug therapy; Z88.1 Allergy status to other antibiotic agents; Z88.2 Allergy status to sulfonamides; Z88.5 Allergy status to narcotic agent; Z91.048 Other nonmedicinal substance allergy status; Z88.0 Allergy status to penicillin; Z91.040 Latex allergy status
CPT/HCPCS: 36415; 71045; 74177; 80053; 81001; 83690; 83735; 84443; 84484; 85025; 86140; 93005; 96361; 96374; 99285; J1170; J3490; J7030; Q9967; 93010; 99284

== ENCOUNTER 2023-12-09 01:43 | Emergency (ER) | payer OTHER, MEDICARE ==
[2023-12-09 02:18] LABS: BASOPHILS PERCENT AUTO 0.5 % (0.0-1.0); EOSINOPHILS ABSOLUTE AUTO 0.1 K/mm3 (0.0-0.4); EOSINOPHILS PERCENT AUTO 1.5 % (0.0-6.0); HEMATOCRIT 40.2 % (37.0-47.0); HEMOGLOBIN 13.4 gm/dl (12.0-16.0); IMMATURE GRAN ABSOLUTE AUTO 0.02 K/mm3 (0.00-0.05); IMMATURE GRAN PERCENT AUTO 0.3 % (0.0-0.4); LYMPHOCYTES ABSOLUTE AUTO 1.9 K/mm3 (1.0-4.8); LYMPHOCYTES PERCENT AUTO 26.1 % (24.0-44.0); MEAN CORPUSCULAR HEMOGLOBIN 32.2 pg (28.0-32.0); MEAN CORPUSCULAR HGB CONC 33.3 g/dl (32.0-36.0); MEAN CORPUSCULAR VOLUME 96.6 fl (83.0-99.0); MEAN PLATELET VOLUME 9.9 fl (9.4-12.3); MONOCYTES ABSOLUTE AUTO 0.6 K/mm3 (0.0-0.8); MONOCYTES PERCENT AUTO 8.5 % (0.0-8.0); NEUTROPHILS ABSOLUTE AUTO 4.6 K/mm3 (1.8-7.7); NEUTROPHILS PERCENT AUTO 63.1 % (41.0-71.0); PLATELET COUNT,PLT 213 K/mm3 (150-400); RED BLOOD CELL COUNT 4.16 M/mm3 (4.10-5.30); WHITE BLOOD CELL COUNT,WBC 7.29 K/mm3 (3.9-11.3)
[2023-12-09 02:50] LABS: A/G RATIO 1.1 (1-2); ALBUMIN 3.1 g/dl (3.4-5.0); BILIRUBIN TOTAL 0.6 mg/dL (0.2-1.0); BUN/CREATININE RATIO 12.7 (14-18); CALCIUM 8.9 mg/dL (8.5-10.1); CREATININE 1.1 mg/dL (0.55-1.02); EST CRCL DRUG DOSING (CG) 43.91 mL/min; MAGNESIUM 1.9 mg/dL (1.8-2.4); TSH 3.603 uIU/mL (0.358-3.74)
== END 2023-12-09 03:26 | disposition home or self-care (01) ==
LOC: JD.ED 01:43
DX: R00.2 Palpitations (principal); I10 Essential (primary) hypertension; K21.9 Gastro-esophageal reflux disease without esophagitis; E03.9 Hypothyroidism, unspecified; E66.9 Obesity, unspecified; Z90.710 Acquired absence of both cervix and uterus; Z79.899 Other long term (current) drug therapy; Z79.890 Hormone replacement therapy; Z88.2 Allergy status to sulfonamides; Z88.0 Allergy status to penicillin; Z88.1 Allergy status to other antibiotic agents; Z91.040 Latex allergy status; Z88.5 Allergy status to narcotic agent; Z88.8 Allergy status to other drugs, medicaments and biological substances
CPT/HCPCS: 36415; 80053; 83735; 84443; 84484; 85025; 93005; 93010; 99284; 99285

== ENCOUNTER 2023-12-19 22:43 | Emergency (ER) | payer OTHER, MEDICARE ==
[2023-12-19 23:22] LABS: BASOPHILS PERCENT AUTO 0.4 % (0.0-1.0); EOSINOPHILS ABSOLUTE AUTO 0.1 K/mm3 (0.0-0.4); EOSINOPHILS PERCENT AUTO 1.3 % (0.0-6.0); HEMATOCRIT 42.7 % (37.0-47.0); HEMOGLOBIN 14.1 gm/dl (12.0-16.0); IMMATURE GRAN ABSOLUTE AUTO 0.03 K/mm3 (0.00-0.05); IMMATURE GRAN PERCENT AUTO 0.3 % (0.0-0.4); LYMPHOCYTES ABSOLUTE AUTO 3.4 K/mm3 (1.0-4.8); LYMPHOCYTES PERCENT AUTO 36.1 % (24.0-44.0); MEAN CORPUSCULAR HEMOGLOBIN 31.7 pg (28.0-32.0); MEAN PLATELET VOLUME 10.2 fl (9.4-12.3); MONOCYTES ABSOLUTE AUTO 0.8 K/mm3 (0.0-0.8); MONOCYTES PERCENT AUTO 8.5 % (0.0-8.0); NEUTROPHILS PERCENT AUTO 53.4 % (41.0-71.0); PLATELET COUNT,PLT 232 K/mm3 (150-400); RED BLOOD CELL COUNT 4.45 M/mm3 (4.10-5.30)
[2023-12-19] MEDS: Sodium Chloride 0.9% 10 ML Syringe FLUSH PRN (23:29)
[2023-12-19] MEDS: Diltiazem 25 MG/5 ML SDV IVPUSH ONE (23:29)
[2023-12-19 23:36] LABS: A/G RATIO 1.1 (1-2); ALBUMIN 3.6 g/dl (3.4-5.0); ANION GAP 10.9 (5-15); BILIRUBIN TOTAL 0.5 mg/dL (0.2-1.0); BUN/CREATININE RATIO 15.5 (14-18); CALCIUM 9.8 mg/dL (8.5-10.1); CREATININE 1.1 mg/dL (0.55-1.02); EST CRCL DRUG DOSING (CG) 45.62 mL/min; MAGNESIUM 1.9 mg/dL (1.8-2.4); POTASSIUM,K 3.9 mEq/L (3.5-5.1)
== END 2023-12-20 01:15 | disposition home or self-care (01) ==
LOC: JD.ED 22:43
DX: I48.91 Unspecified atrial fibrillation (principal); I10 Essential (primary) hypertension; E66.9 Obesity, unspecified; E03.9 Hypothyroidism, unspecified; Z90.710 Acquired absence of both cervix and uterus; Z79.890 Hormone replacement therapy; Z79.01 Long term (current) use of anticoagulants; Z79.899 Other long term (current) drug therapy; Z88.2 Allergy status to sulfonamides; Z88.0 Allergy status to penicillin; Z88.1 Allergy status to other antibiotic agents; Z91.040 Latex allergy status; Z91.048 Other nonmedicinal substance allergy status; Z88.6 Allergy status to analgesic agent; Z68.32 Body mass index [BMI] 32.0-32.9, adult
CPT/HCPCS: 36415; 71045; 80053; 83735; 84484; 85025; 93005; 96374; 99285; J3490; 93010; 99284

== ENCOUNTER 2024-03-23 20:57 | Emergency (ER) | payer OTHER, MEDICARE ==
[2024-03-23] MEDS ORDERED: Sodium Chloride 0.9% 10 ML Syringe FLUSH PRN (21:46)
[2024-03-23 22:18] LABS: BASOPHILS PERCENT AUTO 0.4 % (0.0-1.0); EOSINOPHILS ABSOLUTE AUTO 0.1 K/mm3 (0.0-0.4); EOSINOPHILS PERCENT AUTO 1.1 % (0.0-6.0); HEMATOCRIT 37.5 % (37.0-47.0); HEMOGLOBIN 12.8 gm/dl (12.0-16.0); IMMATURE GRAN ABSOLUTE AUTO 0.01 K/mm3 (0.00-0.05); IMMATURE GRAN PERCENT AUTO 0.1 % (0.0-0.4); LYMPHOCYTES PERCENT AUTO 24.5 % (24.0-44.0); MEAN CORPUSCULAR HEMOGLOBIN 31.4 pg (28.0-32.0); MEAN CORPUSCULAR HGB CONC 34.1 g/dl (32.0-36.0); MEAN CORPUSCULAR VOLUME 91.9 fl (83.0-99.0); MEAN PLATELET VOLUME 9.6 fl (9.4-12.3); MONOCYTES ABSOLUTE AUTO 0.7 K/mm3 (0.0-0.8); MONOCYTES PERCENT AUTO 8.1 % (0.0-8.0); NEUTROPHILS ABSOLUTE AUTO 5.3 K/mm3 (1.8-7.7); NEUTROPHILS PERCENT AUTO 65.8 % (41.0-71.0); PLATELET COUNT,PLT 219 K/mm3 (150-400); RED BLOOD CELL COUNT 4.08 M/mm3 (4.10-5.30); WHITE BLOOD CELL COUNT,WBC 8.07 K/mm3 (3.9-11.3)
[2024-03-23 22:44] LABS: ALBUMIN 3.2 g/dl (3.4-5.0); ANION GAP 13.6 (5-15); BILIRUBIN TOTAL 0.3 mg/dL (0.2-1.0); CALCIUM 9.2 mg/dL (8.5-10.1); EST CRCL DRUG DOSING (CG) 42.68 mL/min; POTASSIUM,K 4.6 mEq/L (3.5-5.1); PROTEIN TOTAL,TP 6.5 g/dl (6.4-8.2)
== END 2024-03-24 00:10 | disposition home or self-care (01) ==
LOC: JD.ED 20:57
DX: M25.512 Pain in left shoulder (principal); R07.9 Chest pain, unspecified; I10 Essential (primary) hypertension; K21.9 Gastro-esophageal reflux disease without esophagitis; E03.9 Hypothyroidism, unspecified; E66.9 Obesity, unspecified; Z90.710 Acquired absence of both cervix and uterus; Z88.1 Allergy status to other antibiotic agents; Z88.0 Allergy status to penicillin; Z88.2 Allergy status to sulfonamides; Z88.5 Allergy status to narcotic agent; Z88.8 Allergy status to other drugs, medicaments and biological substances; Z91.040 Latex allergy status; Z91.048 Other nonmedicinal substance allergy status; Z79.890 Hormone replacement therapy; Z79.899 Other long term (current) drug therapy; Z68.38 Body mass index [BMI] 38.0-38.9, adult
CPT/HCPCS: 36415; 71045; 71045-26; 73060-26-LT; 73060-LT; 80053; 84484; 85025; 93005; 99285

== ENCOUNTER 2024-07-17 05:31 | Emergency (ER) | payer BC, MEDICARE ==
[2024-07-17] MEDS: Sodium Chloride 0.9% 10 ML Syringe FLUSH PRN (06:13)
[2024-07-17 06:16] LABS: BASOPHILS ABSOLUTE AUTO 0.1 K/mm3 (0.0-0.2); BASOPHILS PERCENT AUTO 0.5 % (0.0-1.0); EOSINOPHILS ABSOLUTE AUTO 0.1 K/mm3 (0.0-0.4); EOSINOPHILS PERCENT AUTO 0.8 % (0.0-6.0); HEMATOCRIT 44.6 % (37.0-47.0); HEMOGLOBIN 14.9 gm/dl (12.0-16.0); IMMATURE GRAN ABSOLUTE AUTO 0.03 K/mm3 (0.00-0.05); IMMATURE GRAN PERCENT AUTO 0.3 % (0.0-0.4); LYMPHOCYTES ABSOLUTE AUTO 1.5 K/mm3 (1.0-4.8); LYMPHOCYTES PERCENT AUTO 15.7 % (24.0-44.0); MEAN CORPUSCULAR HEMOGLOBIN 31.6 pg (28.0-32.0); MEAN CORPUSCULAR HGB CONC 33.4 g/dl (32.0-36.0); MEAN CORPUSCULAR VOLUME 94.5 fl (83.0-99.0); MEAN PLATELET VOLUME 10.7 fl (9.4-12.3); MONOCYTES ABSOLUTE AUTO 0.6 K/mm3 (0.0-0.8); MONOCYTES PERCENT AUTO 5.7 % (0.0-8.0); NEUTROPHILS ABSOLUTE AUTO 7.6 K/mm3 (1.8-7.7); PLATELET COUNT,PLT 233 K/mm3 (150-400); RED BLOOD CELL COUNT 4.72 M/mm3 (4.10-5.30); WHITE BLOOD CELL COUNT,WBC 9.83 K/mm3 (3.9-11.3)
[2024-07-17] MEDS: Aspirin 81 MG Tab.Chew PO ONE (06:22)
[2024-07-17 06:27] LABS: ALBUMIN 3.5 g/dl (3.4-5.0); ANION GAP 10.9 (5-15); BILIRUBIN TOTAL 0.7 mg/dL (0.2-1.0); CALCIUM 9.6 mg/dL (8.5-10.1); EST CRCL DRUG DOSING (CG) 46.43 mL/min; MAGNESIUM 2.1 mg/dL (1.8-2.4); POTASSIUM,K 3.9 mEq/L (3.5-5.1); PROTEIN TOTAL,TP 7.1 g/dl (6.4-8.2)
== END 2024-07-17 08:25 | disposition home or self-care (01) ==
LOC: JD.ED 05:31
DX: R07.89 Other chest pain (principal); R00.2 Palpitations; I10 Essential (primary) hypertension; K21.9 Gastro-esophageal reflux disease without esophagitis; E03.9 Hypothyroidism, unspecified; E66.9 Obesity, unspecified; Z68.35 Body mass index [BMI] 35.0-35.9, adult; Z98.84 Bariatric surgery status; Z90.710 Acquired absence of both cervix and uterus; Z88.0 Allergy status to penicillin; Z88.1 Allergy status to other antibiotic agents; Z88.2 Allergy status to sulfonamides; Z88.5 Allergy status to narcotic agent; Z91.040 Latex allergy status; Z91.048 Other nonmedicinal substance allergy status; Z79.890 Hormone replacement therapy; Z79.899 Other long term (current) drug therapy
CPT/HCPCS: 36415; 71045; 80053; 83735; 84484; 85025; 93005; 99285; A9270

== ENCOUNTER 2024-12-08 09:31 | Emergency (ER) | payer BC, MEDICARE ==
[2024-12-08] MEDS ORDERED: Sodium Chloride 0.9% 10 ML Syringe FLUSH PRN (10:02)
[2024-12-08 10:22] LABS: BASOPHILS ABSOLUTE AUTO 0.0 K/mm3 (0.0-0.2); BASOPHILS PERCENT AUTO 0.4 % (0.0-1.0); EOSINOPHILS ABSOLUTE AUTO 0.0 K/mm3 (0.0-0.4); EOSINOPHILS PERCENT AUTO 0.5 % (0.0-6.0); IMMATURE GRAN ABSOLUTE AUTO 0.03 K/mm3 (0.00-0.05); IMMATURE GRAN PERCENT AUTO 0.4 % (0.0-0.4); LYMPHOCYTES ABSOLUTE AUTO 1.2 K/mm3 (1.0-4.8); LYMPHOCYTES PERCENT AUTO 15.4 % (24.0-44.0); MEAN PLATELET VOLUME 10.3 fl (9.4-12.3); MONOCYTES ABSOLUTE AUTO 0.4 K/mm3 (0.0-0.8); MONOCYTES PERCENT AUTO 5.0 % (0.0-8.0); NEUTROPHILS ABSOLUTE AUTO 6.3 K/mm3 (1.8-7.7); NEUTROPHILS PERCENT AUTO 78.3 % (41.0-71.0); NRBC ABSOLUTE 0.00 (0.00-0.02); NRBC PERCENT 0.0 % (0.0-0.2); PLATELET COUNT,PLT 275 K/mm3 (150-400); RED BLOOD CELL COUNT 5.20 M/mm3 (4.10-5.30); WHITE BLOOD CELL COUNT,WBC 8.05 K/mm3 (3.9-11.3)
[2024-12-08 10:42] LABS: A/G RATIO 1.1 (1-2); ALANINE AMINOTRANSFERASE,ALT 34.0 U/L (14-59); ASPARTATE AMNIOTRANSFERASE,AST 27.0 U/L (15-37); BILIRUBIN TOTAL 0.8 mg/dL (0.2-1.0); BLOOD UREA NITROGEN,BUN 14.0 mg/dL (7-18); CARBON DIOXIDE,CO2 28.0 mEq/L (21-32); CHLORIDE,CL 100.0 mEq/L (98-107); CREATININE 1.1 mg/dL (0.55-1.02); EST CRCL DRUG DOSING (CG) 43.28 mL/min; ESTIMATED GFR 53.0 mL/min (>60); GLUCOSE RANDOM 102.0 mg/dL (70-99); POTASSIUM,K 4.0 mEq/L (3.5-5.1); PROTEIN TOTAL,TP 8.2 g/dl (6.4-8.2); SODIUM,NA 139.0 mEq/L (136-145); TROPONIN I HIGH SENSITIVITY 8.0 pg/mL (<=51)
== END 2024-12-08 12:06 | disposition home or self-care (01) ==
LOC: JD.ED 09:31
DX: R00.2 Palpitations (principal); I48.91 Unspecified atrial fibrillation; I10 Essential (primary) hypertension; K21.9 Gastro-esophageal reflux disease without esophagitis; E66.9 Obesity, unspecified; E03.9 Hypothyroidism, unspecified; Z88.0 Allergy status to penicillin; Z88.1 Allergy status to other antibiotic agents; Z88.2 Allergy status to sulfonamides; Z91.040 Latex allergy status; Z91.048 Other nonmedicinal substance allergy status; Z88.8 Allergy status to other drugs, medicaments and biological substances; Z79.890 Hormone replacement therapy; Z79.899 Other long term (current) drug therapy; Z90.710 Acquired absence of both cervix and uterus; Z68.32 Body mass index [BMI] 32.0-32.9, adult
CPT/HCPCS: 36415; 71045; 71045-26; 80053; 84484; 85025; 93005; 99285